=== PATIENT | female | born 1980 | race Caucasian/White ===

== ENCOUNTER 2017-06-20 11:22 | Emergency (ER) | payer SELFPAY ==
[2017-06-20 12:25] VITALS: BP 86/52
--- NOTE | 2017-06-20 12:30 | UC ---
Shoulder Pain HPI - HPI Summary HPI Summary: Patient has had left shoulder pain for 2 weeks, does not remember any injury, hurts to move. - History of Current Complaint Chief Complaint: UCUpperExtremity Stated Complaint: LEFT SHOULDER PAIN Time Seen by Provider: 06/20/17 12:20 Hx Obtained From: Patient Hx Last Menstrual Period: ~06/03/17 Onset/Duration: Sudden Onset, Lasting Weeks Timing: Constant Severity Initially: Mild Severity Currently: Moderate Location Of Pain: Is Diffuse - left shoulder and arm Aggravating Factor(s): Movement Alleviating Factor(s): Nothing - Allergies/Home Medications Allergies/Adverse Reactions: Allergies Allergy/AdvReac Type Severity Reaction Status Date / Time No Known Allergies Allergy Verified 06/20/17 12:08 PMH/Surg Hx/FS Hx/Imm Hx Previously Healthy: Yes - Surgical History Surgical History: Yes Surgery Procedure, Year, and Place: Right Foot Bunionectomy, ~ [place] - Family History Known Family History: Negative: Cardiac Disease, Hypertension - Social History Alcohol Use: Occasionally Substance Use Type: None Smoking Status (MU): Heavy Every Day Tobacco Smoker Type: Cigarettes Amount Used/How Often: < 1 PPD Length of Time of Smoking/Using Tobacco: Since Age 17 Have You Smoked in the Last Year: Yes - Immunization History Most Recent Tetanus Shot: 01/13/13 Review of Systems Skin: Negative Eyes: Negative ENT: Negative Respiratory: Negative Cardiovascular: Negative Gastrointestinal: Negative Genitourinary: Negative Motor: Negative Neurovascular: Negative Musculoskeletal: Arthralgia, Decreased ROM, Myalgia Neurological: Negative Psychological: Negative All Other Systems Reviewed And Are Negative: Yes Physical Exam Triage Information Reviewed: Yes Appearance: Well-Appearing, Well-Nourished, Pain Distress Vital Signs: Initial Vital Signs Temp 98.2 F 06/20/17 12:05 Pulse 76 06/20/17 12:05 Resp 16 06/20/17 12:05 BP 86/52 06/20/17 12:05 Pulse Ox 100 06/20/17 12:05 Vital Signs Reviewed: Yes Eye Exam: Normal ENT Exam: Normal Dental Exam: Normal Neck exam: Normal Respiratory Exam: Normal Cardiovascular Exam: Normal Abdominal Exam: Normal Bowel Sounds: Positive: Present Musculoskeletal: Positive: No Edema, Strength Limited @ - left shoulder, ROM Limited @ Neurological Exam: Normal Psychological Exam: Normal Skin Exam: Normal Shoulder Course/Dx - Course Course Of Treatment: hx obtained, exam performed, meds reviewed, Istop consulted xray obtained, - Differential Dx/Diagnosis Differential Diagnosis/HQI/PQRI: Dislocation, Fracture (Closed), Rotator Cuff Injury, Sprain, Strain Provider Diagnoses: shoulder strain Discharge - Discharge Plan Condition: Stable Disposition: HOME Patient Education Materials: Shoulder Pain (ED) Referrals: Corwin Garcia MD [Primary Care Provider] - Additional Instructions: 1. your xray was negative 2. Wear the sling to give the shoulder a rest 3. Ibuprofen and tylneol for pain 4. heat the shoulder and stretch\ 5. If not improving call the listed orthopedic for further evaluation
--- NOTE | 2017-06-20 13:03 | RAD ---
Indication: 2 weeks LEFT shoulder pain without preceding injury. Decreased range of motion. Comparison: No relevant prior exams available on the [facility] [place] for comparison. Technique: Internal rotation AP, external rotation Grashey, scapular Y, axillary views LEFT shoulder Report: Normal acromioclavicular and glenohumeral joint alignment. Negative for fracture. Negative for significant arthropathic change. Negative for stigmata of calcific tendinopathy or abnormal soft tissue contour. IMPRESSION: Negative radiographic exam of the LEFT shoulder.
== END 2017-06-20 13:20 | disposition home or self-care (01) ==
LOC: UCCORT 11:22
DX: S46.812A Strain of other muscles, fascia and tendons at shoulder and upper arm level, left arm, initial encounter (principal); F17.210 Nicotine dependence, cigarettes, uncomplicated; X58.XXXA Exposure to other specified factors, initial encounter
CPT/HCPCS: 99212; G0463

== ENCOUNTER 2019-03-14 09:28 | Emergency (ER) | payer SELFPAY ==
[2019-03-14 09:52] VITALS: BP 114/63
--- NOTE | 2019-03-14 12:25 | UC ---
Hand/Wrist HPI - HPI Summary HPI Summary: left wrist pain x 2 days + pain and swelling of the left wrist, pain is 6 out of 10 , worse with using her left wrist, better with rest and ice, no known injury - History Of Current Complaint Chief Complaint: UCUpperExtremity Stated Complaint: LT WRIST HAND INJURY Time Seen by Provider: 03/14/19 09:58 Hx Obtained From: Patient Hx Last Menstrual Period: 02/28/19 ?: No Onset/Duration: Gradual Onset, Lasting Days - 2, Still Present Severity Initially: Moderate Severity Currently: Moderate Pain Intensity: 0 Pain Scale Used: 0-10 Numeric Character Of Pain: Aching Aggravating Factor(s): Lifting, Flexion, Extension Alleviating Factor(s): Rest, Ice Associated Signs And Symptoms: Positive: Swelling, Weakness, Numbness/Tingling. Negative: Redness, Bruising, Fever, Other - Allergies/Home Medications Allergies/Adverse Reactions: Allergies Allergy/AdvReac Type Severity Reaction Status Date / Time No Known Allergies Allergy Verified 03/14/19 09:52 PMH/Surg Hx/FS Hx/Imm Hx Previously Healthy: Yes - Surgical History Surgical History: Yes Surgery Procedure, Year, and Place: Right Foot Bunionectomy, ~1994, [place] - Family History Known Family History: Negative: Cardiac Disease, Hypertension - Social History Alcohol Use: Occasionally Substance Use Type: None Smoking Status (MU): Heavy Every Day Tobacco Smoker Type: Cigarettes Amount Used/How Often: 1/2 PPD Length of Time of Smoking/Using Tobacco: Since Age 17 Have You Smoked in the Last Year: Yes Household Exposure Type: Cigarettes - Immunization History Most Recent Tetanus Shot: 01/13/13 Review of Systems All Other Systems Reviewed And Are Negative: Yes Constitutional: Positive: Negative Skin: Positive: Negative Eyes: Positive: Negative ENT: Positive: Negative Is Patient Immunocompromised?: No Physical Exam Triage Information Reviewed: Yes Appearance: Well-Appearing, No Pain Distress, Well-Nourished Vital Signs: Initial Vital Signs Temp 97.3 F 03/14/19 09:48 Pulse 75 03/14/19 09:48 Resp 18 03/14/19 09:48 BP 114/63 03/14/19 09:48 Pulse Ox 100 03/14/19 09:48 Vital Signs Reviewed: Yes Eye Exam: Normal Eyes: Positive: Conjunctiva Clear ENT: Positive: Normal ENT inspection, Hearing grossly normal, Pharynx normal Neck: Positive: Supple, Nontender, No Lymphadenopathy Respiratory: Positive: Chest non-tender, Lungs clear, Normal breath sounds Cardiovascular: Positive: RRR, No Murmur, Pulses Normal Musculoskeletal: Positive: Other: - left wrist : + swelling, tenderness ulnar wrist, decrease ROM on flexion and extension limited strength Diagnostics - Radiology No standard instances Radiology Interpretation Completed By: Radiologist Summary of Radiographic Findings: left wrist : IMPRESSION: #. Given ulnar aspect soft tissue swelling consider potential extensor carpi ulnaris. tendinopathy or tenosynovitis. If clinically indicated this could be further assessed with. ultrasound or MRI. Hand/Wrist Course/Dx - Differential Dx/Diagnosis Provider Diagnosis: Tendonitis of wrist, left Discharge - Sign-Out/Discharge Documenting (check all that apply): Patient Departure All imaging exams completed and their final reports reviewed: Yes - Discharge Plan Condition: Stable Disposition: HOME Prescriptions: Naproxen [Naproxen 500 mg tab] 500 mg PO BID WITH MEALS #20 tablet Patient Education Materials: Tendinitis (ED) Referrals: Corwin Garcia MD [Primary Care Provider] - 7 Days - Billing Disposition and Condition Condition: STABLE Disposition: Home
== END 2019-03-14 10:40 | disposition home or self-care (01) ==
LOC: UCCORT 09:28
DX: M77.9 Enthesopathy, unspecified (principal); M25.532 Pain in left wrist; F17.210 Nicotine dependence, cigarettes, uncomplicated
CPT/HCPCS: 99212; G0463

== ENCOUNTER 2019-05-30 10:08 | Emergency (ER) | payer SELFPAY ==
[2019-05-30 10:45] VITALS: BP 118/54
--- NOTE | 2019-05-30 10:53 | UC ---
Respiratory Complaint HPI - HPI Summary HPI Summary: 38 y/o female presents to the urgent care c/o nasal congestion w/ yellowish nasal discharge for the past week. Now symptoms worse for the past 2 days w/ sore throat and moderate PND and more nasal congestion w/ body aches. Pain w/ swallowing is 6/10. She has been taking OT medications w/o any improvement. She also has a dry cough. Pt denies fever, SOB, chest pain, abdominal pain. N/V/d. - History of Current Complaint Chief Complaint: UCRespiratory Stated Complaint: CONGESTION,ST,COUGH Time Seen by Provider: 05/30/19 10:51 Hx Obtained From: Patient Hx Last Menstrual Period: 05/04/19 Onset/Duration: Gradual Onset, Lasting Weeks - 1 week, Still Present, Worse Since - 2 days w/ sore throat, body aches, Timing: Constant Severity Initially: Mild Severity Currently: Moderate Pain Intensity: 6 Pain Scale Used: 0-10 Numeric Character: Cough: Nonproductive Aggravating Factors: Recumbent Position Alleviating Factors: OTC Meds Associated Signs And Symptoms: Positive: URI, Nasal Congestion - yellowish nasal disacharge, Sinus Discomfort. Negative: Fever, Chills, Wheezing Related History: Seasonal Allergies - Risk Factors Pulmonary Embolism Risk Factors: Negative Cardiac Risk Factors: Negative Pseudomonas Risk Factors: Negative Tuberculosis Risk Factors: Negative - Allergies/Home Medications Allergies/Adverse Reactions: Allergies Allergy/AdvReac Type Severity Reaction Status Date / Time No Known Allergies Allergy Verified 05/30/19 10:38 PMH/Surg Hx/FS Hx/Imm Hx Previously Healthy: Yes - Pt denies PMHX - Surgical History Surgical History: Yes Surgery Procedure, Year, and Place: Right Foot Bunionectomy, ~[facility] - Family History Known Family History: Positive: Hypertension, Respiratory Disease - asthma Negative: Cardiac Disease - Social History Occupation: Employed Full-time Lives: With Family Alcohol Use: Occasionally Substance Use Type: None Smoking Status (MU): Heavy Every Day Tobacco Smoker Type: Cigarettes Amount Used/How Often: 1/2 PPD Length of Time of Smoking/Using Tobacco: Since Age 17 Have You Smoked in the Last Year: Yes Household Exposure Type: Cigarettes - Immunization History Most Recent Tetanus Shot: 01/13/13 Review of Systems All Other Systems Reviewed And Are Negative: Yes Constitutional: Positive: Other - body aches Skin: Positive: Negative Eyes: Positive: Negative ENT: Positive: Sore Throat, Nasal Discharge - yellowish, Sinus Congestion, Sinus Pain/Tenderness, Other - moderate PND Respiratory: Positive: Cough - dry Cardiovascular: Positive: Negative Gastrointestinal: Positive: Negative Genitourinary: Positive: Negative Motor: Positive: Negative Neurovascular: Positive: Negative Musculoskeletal: Positive: Myalgia Neurological: Positive: Negative Psychological: Positive: Negative Is Patient Immunocompromised?: No Physical Exam - Summary Physical Exam Summary: VITAL SIGNS: Reviewed. GENERAL: Patient is a well developed and nourished female who is sitting comfortable in the examining table. Patient is not in any acute respiratory distress. HEAD AND FACE: No signs of trauma. No ecchymosis, hematomas or skull depressions. positive frontal and maxillary sinus tenderness on percussion EYES: PERRLA, EOMI x 2, No injected conjunctiva, no nystagmus. No photophobia. EARS: Hearing grossly intact. Ear canals and tympanic membranes are within normal limits. MOUTH: Positive pharynx with erythema, exudates, palatal petechiae. B/L tonsillar enlargement with exudate. Uvula in midline. Moderate yellowish pND NECK: Supple, trachea is midline, Positive anterior cervical lymphadenopathy, no JVD, no carotid bruit, no c-spine tenderness, neck with full ROM. No meningeal signs, no Kernig's or brudzinskis signs. CHEST: Symmetric, no tenderness at palpation LUNGS: Clear to auscultation bilaterally. No wheezing or crackles. CVS: Regular rate and rhythm, S1 and S2 present, no murmurs or gallops appreciated. ABDOMEN: Soft, non-tender. No signs of distention. No rebound no guarding, and no masses palpated. Bowel sounds are normal. EXTREMITIES: FROM in all major joints, no edema, no cyanosis or clubbing. NEURO: Alert and oriented x 3. No acute neurological deficits. Speech is normal and follows commands. SKIN: Dry and warm Triage Information Reviewed: Yes Vital Signs: Initial Vital Signs Temp 99.1 F 05/30/19 10:37 Pulse 98 05/30/19 10:37 Resp 20 05/30/19 10:37 BP 118/54 05/30/19 10:37 Pulse Ox 100 05/30/19 10:37 Respiratory Course/Dx - Course Course Of Treatment: 38 y/o female presents to the urgent care c/o nasal congestion w/ yellowish nasal discharge for the past week. Now symptoms worse for the past 2 days w/ sore throat and moderate PND and more nasal congestion w/ body aches. Pain w/ swallowing is 6/10. She has been taking OT medications w/o any improvement. She also has a dry cough. Pt denies fever, SOB, chest pain, abdominal pain. N/V/d. Pt w/ bacteril sinusitis and pharyngitis on examination. Rapid strep: negative. Pt with 1 week of symptoms getting worse. Pt Rx Amoxicillin PO and flonase nasal spray. Advised to continue w/ Ibuprofen PO to alleviate pain and swelling. Discharge instructions explained to Pt. Advised to Return to the clinic or PCP in 3 days if symptoms do not improve.Pt understood and agreed with plan of care. - Differential Dx/Diagnosis Differential Diagnosis/HQI/PQRI: Asthma, Bronchitis, Laryngitis, Lower Resp Infection, Sinusitis, Other - pharyngitis, strep Provider Diagnosis: Acute bacterial sinusitis, Pharyngitis Discharge - Sign-Out/Discharge Documenting (check all that apply): Patient Departure - D/C home All imaging exams completed and their final reports reviewed: No Studies - Discharge Plan Condition: Stable Disposition: HOME Prescriptions: Amoxicillin PO (*) [Amoxicillin 500 MG CAP*] 500 mg PO Q12H #20 cap Fluticasone NASAL SPRAY 50MCG* [Flonase NASAL SPRAY 50MCG*] 2 spray BOTH NARES DAILY #1 btl Patient Education Materials: Pharyngitis (ED), Sinusitis (ED) Forms: *Work Release Referrals: Corwin Garcia MD [Primary Care Provider] - 3 Days Additional Instructions: 1- Please increase fluid intake and rest. take full course of antibiotics to avoid resistance. Take yogurts w/ probiotics or Culturelle to protect your GI system 2-Use Flonase as directed to help drain fluid. Also buy saline drops to clear sinuses 3-Take Ibuprofen PO q6-8hrs prn after meals to alleviate pain and swelling 4-Please f/u w/ your PCP in 3 days if symptoms do not improve for further management and treatment - Billing Disposition and Condition Condition: STABLE Disposition: Home
== END 2019-05-30 11:43 | disposition home or self-care (01) ==
LOC: UCCORT 10:08
DX: J01.90 Acute sinusitis, unspecified (principal); B96.89 Other specified bacterial agents as the cause of diseases classified elsewhere; J02.9 Acute pharyngitis, unspecified; F17.210 Nicotine dependence, cigarettes, uncomplicated
CPT/HCPCS: 87651; 99211; G0463